=== PATIENT | female | born 1985 | race Caucasian/White ===

== ENCOUNTER 2016-03-10 21:29 | Emergency (ER) | END 2016-03-11 03:16 | disposition home or self-care (01) | DX: O21.9 Vomiting of pregnancy, unspecified (principal); O23.41 Unspecified infection of urinary tract in pregnancy, first trimester; Z3A.10 10 weeks gestation of pregnancy | CPT/HCPCS: 76801; 80053; 81001; 81003; 84702; 85025; 86900; 86901; J2405; J7030 ==

== ENCOUNTER 2016-08-17 13:43 | Outpatient (CLI) | payer OTHER ==
[~2016-08-17] VITALS: Ht 152.4 cm; Wt 74.7 kg
[~2016-08-17 13:43] MED LIST: CEPH-443 PO; ONDA4TAB8 PO
[2016-08-17 13:58] VITALS: BP 98/59; PULSE 81; RESP 18; Ht 152.4 cm; Wt 74.7 kg
[2016-08-17] MEDS ORDERED: PRENAT PO (13:58)
[2016-08-17] MEDS ORDERED: FER325 PO (13:58)
[2016-08-17 14:32] LABS: BASOPHILS % 0.1 % (0.0-2.0); EOSINOPHILS % 0.2 % (0.0-7.0); HEMOGLOBIN 9.4 g/dl (12.0-16.0); LYMPHOCYTES # 1.9 10^3/ul (0.8-2.9); LYMPHOCYTES % 14.6 % (15.0-51.0); MEAN CORPUSCULAR HEMOGLOBIN 28.1 pg (29.0-33.0); MEAN CORPUSCULAR HGB CONC 32.4 g/dl (32.0-37.0); MEAN CORPUSCULAR VOLUME 86.8 fl (82.0-101.0); MONOCYTE # 0.7 10^3/ul (0.3-0.9); NEUTROPHIL # 10.5 10^3/ul (1.6-7.5); PLATELET COUNT 182 10^3/UL (140-415); RED BLOOD COUNT 3.34 10^6/ul (4.20-5.40); RED CELL DISTRIBUTION WIDTH 13.6 % (11.5-14.5); WHITE BLOOD COUNT 13.3 10^3/ul (4.8-10.8)
[2016-08-17 14:38] LABS: ADD SCAN DIFF NO
[2016-08-17 14:46] LABS: ADD UMIC YES; UR ASCORBIC ACID NEGATIVE (NEGATIVE); UR BILIRUBIN (Dip) NEGATIVE (NEGATIVE); UR BLOOD (Dip) NEGATIVE (NEGATIVE); UR CLARITY CLOUDY (CLEAR); UR COLOR YELLOW (YELLOW); UR GLUCOSE (Dip) NEGATIVE (NEGATIVE); UR KETONES (Dip) TRACE mg/dL (NEGATIVE); UR LEUKOCYTE ESTERASE (Dip) 2+ Leu/ul (NEGATIVE); UR MUCUS MANY /HPF (NONE SEEN); UR NITRITE (Dip) NEGATIVE (NEGATIVE); UR RBC 45 /HPF (0-5); UR SPECIFIC GRAVITY (Dip) 1.023 (1.003-1.030); UR SQUAMOUS EPITHELIAL CELL FEW /HPF (FEW); UR TOTAL PROTEIN (Dip) 1+ mg/dl (NEGATIVE); UR URIC ACID CRYSTAL MANY /HPF (NONE SEEN); UR UROBILINOGEN (Dip) 1+ mg/dL (NEGATIVE)
[2016-08-17] MEDS ORDERED: LACTATED RINGER'S 1,000 ML IV SCH (15:00)
[2016-08-17 15:04] LABS: ALBUMIN 3.9 g/dl (3.3-4.9); ALBUMIN/GLOBULIN RATIO 1.62; BILIRUBIN,INDIRECT 0.1 mg/dl (0-1.1); BILIRUBIN,TOTAL 0.1 mg/dl (0.2-1.3); CALCIUM 9.6 mg/dl (8.4-10.2); CREATININE 0.52 mg/dl (0.44-1.00); POTASSIUM 3.4 mmol/L (3.5-5.1); TOTAL PROTEIN 6.3 g/dl (6.1-8.1)
--- NOTE | 2016-08-17 15:16 | RADRPT ---
PROCEDURE: US Abdomen (right upper quadrant). CLINICAL INDICATION: Abdominal pain. TECHNIQUE: Multiple real-time longitudinal and transverse images of the right upper quadrant of th e abdomen were acquired utilizing a curved array transducer. Images were reviewed on a high-resoluti on PACS workstation. COMPARISON: None FINDINGS: The liver is normal in size and echogenicity without focal mass or intrahepatic biliary dilatation. Multiple stones are present within the gallbladder measuring up to 2.2 cm in diameter. There is no pericholecystic fluid or gallbladder wall thickening. No intra or extrahepatic biliary dilatation is seen. The common bile duct measures 2.4 mm in maximal dimension. The visualized portions of the pancreas are unremarkable with obscuration of the tail of the pancreas. No free fluid is identifie d. The right kidney measures 10.6 cm in length. There is normal echogenicity within the right kidney. There is no perinephric fluid collection. No hydronephrosis, mass, or calculus is seen. IMPRESSION: Cholelithiasis without evidence of cholecystitis. Otherwise, unremarkable right upper quadrant ultr asound. RPTAT: QQ .Chintan Villanueva MD, Date Time Electronically viewed and signed by .Chintan Villanueva MD, MD on 08/17/2016 15:16 .A/
--- NOTE | 2016-08-17 15:38 | RADRPT ---
PROCEDURE: US OB. CLINICAL INDICATION: labor TECHNIQUE: Transabdominal OB views of the pelvis are available for review. COMPARISON: March 11, 2016 FINDINGS: Within the uterus, there is a single, live intrauterine . The presentation is cephalic. Th e heart rate is 179 beats per minute. The placenta is noted to be anterior and grade 3. There are no findings of abruption or previa. The cervical length transvaginally is 3.2 cm. It is closed. IMPRESSION: 1. Single live intrauterine in cephalic presentation. The cervical length is 3.2 cm. It is closed. 2. The placenta is anterior and grade 3. There are no findings of abruption or previa. RPTAT: QQ .Brianda Schmitt MD, Date Time Electronically viewed and signed by .Brianda Schmitt MD, on 08/17/2016 15:37 .F/
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
--- NOTE | 2016-08-17 15:56 | TRIAGE ---
OB Triage Datetime Report Generated by CPN: 08/17/2016 15:56 Datetime: 08/17/2016 15:00 Stage of : OB Triage Maternal Assessment Level of Consciousness: Fully Conscious Labor Evaluation Frequency: 1-4 Monitor Mode: External Duration (sec)2399: 50-80 Quality: Mild Resting Tone [place]: Relaxed Heart Rate FHR Baseline Rate: 125 Monitor Mode: External US Variability: Moderate 6-25 bpm Accelerations: 15X15 Decelerations: None Category: Category I Pain Assessment Pain Scale: 9 Pain Presence: Constant Pain Type: Ache Pain Location: Abdomen Pain Goal: 3 Pain Relief Measures: Comfort Measures Pain Assessment Comments: PT C/O FEELING "GALLSTONE PAIN". DENIES FEELING UC'S Membrane Status: Intact Vaginal Bleeding: None Datetime: 08/17/2016 14:47 Comments: EFM OFF FOR BEDSIDE U/S. Datetime: 08/17/2016 14:35 Vaginal Exam Dilatation (cms): 0.0 Station: -3 Exam By: DESHAUNI Pool: Negative Datetime: 08/17/2016 13:55 Assessment Type: Triage EGA: 33.0 Maternal Assessment Level of Consciousness: Fully Conscious DTR's/Clonus: DTRs 2+; No Clonus Headache: Denies Blurred Vision: No Respiratory Effort: Unlabored; Regular Rhythm; Equal Expansion Breath Sounds, Left: Clear and Equal Breath Sounds, Right: Clear and Equal Nausea/Vomiting: Denies RUQ Epigastric Pain: Denies Lower Extremities Edema: None Degree: None Upper Extremities Edema: None Degree: None Facial Edema: None Fall Risk Assessment History of Falling: (0) No Secondary Diagnosis: (0) No Ambulatory Aid: (0) Bedrest/Nurse Assist IV Therapy: (0) No Gait: (0) Normal/Bedrest/Immobile Mental Status: (0) Oriented to Own Ability Fall Score: 0 Fall Risk Score Definition: No Risk: No action required Datetime: 08/17/2016 13:51 Monitor Mode: External Monitor Mode: External US Datetime: 08/17/2016 13:48 Time of Arrival: 08/17/2016 13:41 Arrived By: Wheelchair Arrived From: Home Chief Complaint: pt here c/o "GALLSTONE PAIN" Movement: Present Contractions: Denies/Absent Rupture of Membranes: Denies Vaginal Bleeding: None Vaginal Discharge: Denies Recent Sexual Intercouse: Denies Abdominal Trauma: Not Applicable Patient Complaints: None Time Provider Notified: 08/17/2016 14:05 (Annotations: Data stored by CPN on behalf of user) Provider Notified: NATHAN Initial Plan: EFM, U/S FOR RUQ ABD. CVL, LABS AMYLASE, LIPASE, CMP, CBC, UA, SVE, FFN, IV HYDRATIO N
== END 2016-08-17 16:00 | disposition home or self-care (01) ==
LOC: OBT 13:43 → L-D 13:44 → OBT 16:00
PROVIDERS: ATTEND Specialist
DX: O26.893 Other specified pregnancy related conditions, third trimester (principal); R10.11 Right upper quadrant pain; Z3A.33 33 weeks gestation of pregnancy
CPT/HCPCS: 36415; 76705; 76817; 80053; 81001; 82150; 82731; 83690; 85025; 96360; J7120; Z7500; G0463

== ENCOUNTER 2017-01-27 13:11 | Emergency (ER) | payer OTHER ==
[~2017-01-27] VITALS: Ht 157.5 cm; Wt 65.4 kg
[~2017-01-27 13:11] MED LIST changes: -CEPH-443 PO; +FER325 PO; -ONDA4TAB8 PO; +PRENAT PO
[2017-01-27 13:26] VITALS: Ht 157.5 cm; Wt 65.4 kg
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
[2017-01-27] MEDS ORDERED: IBUPROFEN 600 MG TAB PO ONE (15:30)
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
[2017-01-27 16:13] LABS: ADD UMIC YES; UR ASCORBIC ACID NEGATIVE (NEGATIVE); UR BILIRUBIN (Dip) NEGATIVE (NEGATIVE); UR BLOOD (Dip) NEGATIVE (NEGATIVE); UR CLARITY CLEAR (CLEAR); UR COLOR YELLOW (YELLOW); UR GLUCOSE (Dip) NEGATIVE (NEGATIVE); UR KETONES (Dip) TRACE mg/dL (NEGATIVE); UR LEUKOCYTE ESTERASE (Dip) TRACE Leu/ul (NEGATIVE); UR MUCUS MODERATE /HPF (NONE SEEN); UR NITRITE (Dip) NEGATIVE (NEGATIVE); UR RBC 2 /HPF (0-5); UR SPECIFIC GRAVITY (Dip) 1.023 (1.003-1.030); UR SQUAMOUS EPITHELIAL CELL FEW /HPF (FEW); UR TOTAL PROTEIN (Dip) NEGATIVE (NEGATIVE); UR UROBILINOGEN (Dip) NEGATIVE (NEGATIVE)
[2017-01-27] MEDS ORDERED: FAMO-96 PO (16:36)
[2017-01-27] MEDS ORDERED: NAPR-260 PO (16:36)
== END 2017-01-27 18:00 | disposition home or self-care (01) ==
LOC: FTE 13:11
DX: S16.1XXA Strain of muscle, fascia and tendon at neck level, initial encounter (principal); R07.9 Chest pain, unspecified; V49.40XA Driver injured in collision with unspecified motor vehicles in traffic accident, initial encounter
CPT/HCPCS: 71010; 72050; 76705; 81001; 93005; Z7502; Z7610